=== PATIENT | male | born 1995 | race Hispanic/Latino ===

== ENCOUNTER 2022-10-28 04:33 | Emergency (ER) | payer SELFPAY ==
[2022-10-28] MEDS ORDERED: TDAP (DIPHTH,PERTUSS(ACELL),TET VAC) 0.5 ML VIAL IMVAC ONE (05:03)
[2022-10-28] MEDS ORDERED: LIDOCAINE 1% MPF 30 ML VIAL ONE (06:11)
[2022-10-28] MEDS ORDERED: MUPIROCIN 2% OINT 22GM TUBE TOP ONE (06:33)
--- NOTE | 2022-10-28 06:35 | ER ---
Nurse's Notes [facility] Name: Oleg Tafoya Age: 27 yrs Sex: Male : 1995 Arrival Date: 10/28/2022 Time: 04:36 Bed 5 Private MD: Diagnosis: Laceration without foreign body of right hand, initial encounter Presentation: 10/28 04:55 Chief complaint: Patient states: I punched a glass window and i cut the top of my hand. kd3 I am bleeding a lot. Coronavirus screen: Vaccine status: Patient reports being unvaccinated. Ebola Screen: No symptoms or risks identified at this time. Complicating Factors: laceration to hand. Initial Sepsis Screen: Does the patient meet any 2 criteria? No. Patient's initial sepsis screen is negative. Does the patient have a suspected source of infection? No. Patient's initial sepsis screen is negative. Risk Assessment: Do you want to hurt yourself or someone else? Patient reports no desire to harm self or others. Onset of symptoms was October 28, 2022. 04:55 Method Of Arrival: Ambulatory kd3 04:55 Acuity: RAFFAELE 3 kd3 Triage Assessment: 04:57 General: Appears in no apparent distress. Behavior is calm, cooperative. Pain: kd3 Complains of pain in right hand. Neuro: Level of Consciousness is awake, alert, obeys commands, Oriented to person, place, time, situation. Cardiovascular: Patient's skin is warm and dry. Respiratory: Airway is patent Trachea midline Respiratory effort is even, unlabored, Respiratory pattern is regular, symmetrical. Injury Description: Laceration sustained to dorsum of right hand. Historical: - Allergies: 04:57 No Known Allergies; kd3 - Home Meds: 04:57 None [Active]; kd3 - PMHx: 04:57 None; kd3 - Immunization history:: Adult Immunizations not up to date, Client reports having NOT received the Covid vaccine. - Social history:: Smoking status: unknown. Screenin:58 [facility] ED Fall Risk Assessment (Adult) History of falling in the last 3 months, kd3 including since admission No falls in past 3 months (0 pts) Confusion or Disorientation No (0 pts) Intoxicated or Sedated No (0 pts) Impaired Gait No (0 pts) Mobility Assist Device Used No (0 pt) Altered Elimination No (0 pt) Score/Fall Risk Level 0 - 2 = Low Risk Oriented to surroundings. Abuse screen: Denies threats or abuse. Denies injuries from another. Nutritional screening: No deficits noted. Tuberculosis screening: No symptoms or risk factors identified. Assessment: 04:59 Musculoskeletal: No deficits noted. Swelling present in right hand. kd3 05:36 General: Appears in no apparent distress. Behavior is calm, cooperative. Pain: kd3 Complains of pain in right hand. Neuro: Level of Consciousness is awake, alert, obeys commands, Oriented to person, place, time, situation. Cardiovascular: Patient's skin is warm and dry. Respiratory: Airway is patent Trachea midline Respiratory effort is even, unlabored, Respiratory pattern is regular, symmetrical. 06:38 Injury Description: Laceration is bleeding moderately. kd3 Vital Signs: 04:55 BP 117 / 70; Pulse 95; Resp 19; Temp 98.8(O); Pulse Ox 99% on R/A; Weight 77.11 kg; kd3 Height 5 ft. 5 in. (165.10 cm); 05:06 BP 128 / 81; Pulse 98; Resp 18; Pulse Ox 99% on R/A; kd3 05:37 BP 123 / 67; Pulse 91; Resp 17; Pulse Ox 98% ; kd3 04:55 Body Mass Index 28.29 (77.11 kg, 165.10 cm) kd3 ED Course: 04:36 Patient arrived in ED. wm 04:38 Mercedes Lennon MD is Attending Physician. sd2 04:55 Jennifer Hsu, RN is Primary Nurse. kd3 04:57 Triage completed. kd3 04:57 Arm band placed on left wrist. kd3 04:58 Patient has correct armband on for positive identification. kd3 04:58 No provider procedures requiring assistance completed. kd3 05:33 XRAY Hand RIGHT 3 View In Process Unspecified. EDMS 06:38 Patient did not have IV access during this emergency room visit. kd3 Administered Medications: 05:05 Drug: Tetanus-Diphtheria Toxoid Adult 0.5 ml {Drafting Detailer: OpenQ (AOBiome). Exp: kd3 05/05/2023. Lot #: [id number]. } Route: IM; Site: right deltoid; 06:38 Follow up: Response: No adverse reaction kd3 06:31 Drug: Lidocaine-Epinephrine -1%: (1:100,000) 5 ml Volume: 20 ml; Route: Infiltration; kd3 06:39 Follow up: Response: No adverse reaction kd3 Medication: 04:59 VIS not applicable for this client. kd3 05:11 Vaccine Information Statement (VIS) provided today. Questions and/or concerns kd3 addressed. VIS edition date: May 27, 2021. Outcome: 06:35 Discharge ordered by . sd2 06:38 Discharged to home ambulatory. kd3 06:38 Condition: stable 06:38 Discharge instructions given to patient, friend, Instructed on discharge instructions, follow up and referral plans. Demonstrated understanding of instructions, follow-up care. 06:39 Patient left the ED. kd3 Signatures: Dispatcher [employer] EDMS Ivania Diego Kyli, RN RN kd3 Mercedes Lennon MD MD sd2
--- NOTE | 2022-10-28 06:35 | EDPHYS ---
Physician Documentation [facility] Name: Oleg Tafoya Age: 27 yrs Sex: Male : 1995 Arrival Date: 10/28/2022 Time: 04:36 Bed 5 Private MD: ED Physician Mercedes Lennon HPI: 10/28 04:57 This 27 yrs old Male presents to ER via Ambulatory with complaints of sd2 Laceration To Hand. 04:57 27 yo M presents with CC of R hand laceration after punching a window at home when he sd2 got angry. Reports continued bleeding and he placed a bandage on the area. Noted FROM of the wrist, hand and fingers. Pt reports unknown last tetanus. . Historical: - Allergies: 04:57 No Known Allergies; kd3 - Home Meds: 04:57 None [Active]; kd3 - PMHx: 04:57 None; kd3 - Immunization history:: Adult Immunizations not up to date, Client reports having NOT received the Covid vaccine. - Social history:: Smoking status: unknown. ROS: 04:57 MS/extremity: Positive for laceration, Negative for injury or acute deformity. sd2 04:57 Skin: Positive for abrasion(s), laceration(s). Exam: 04:57 Constitutional: This is a well developed, well nourished patient who is awake, alert, sd2 and in no acute distress. Head/Face: Normocephalic, atraumatic. Eyes: EOMI, normal conjunctiva bilaterally Skin: Warm, dry with normal turgor. Normal color with no rashes, no lesions, and no evidence of cellulitis. Superficial laceration noted to dorsal aspect of R palm with active bleeding. pressure dressing placed. MS/ Extremity: Pulses equal, no cyanosis. Neurovascular intact. Full, normal range of motion. Ambulatory without difficulty. Neuro: Awake and alert, GCS 15, oriented to person, place, time, and situation. Cranial nerves II-XII grossly intact. Motor strength 5/5 in all extremities. Sensory grossly intact. Cerebellar exam normal. Normal gait. Vital Signs: 04:55 BP 117 / 70; Pulse 95; Resp 19; Temp 98.8(O); Pulse Ox 99% on R/A; Weight 77.11 kg; kd3 Height 5 ft. 5 in. (165.10 cm); 05:06 BP 128 / 81; Pulse 98; Resp 18; Pulse Ox 99% on R/A; kd3 05:37 BP 123 / 67; Pulse 91; Resp 17; Pulse Ox 98% ; kd3 04:55 Body Mass Index 28.29 (77.11 kg, 165.10 cm) kd3 Laceration: 06:31 Wound Repair of 6cm ( 2.4in ) subcutaneous laceration to right hand. Irregularly sd2 shaped.. Profuse bleeding noted.. Distal neuro/vascular/tendon intact. Anesthesia: Local anesthetic administered with 4 mls of 1% lidocaine. Wound prep: Simple cleansing, Moderate cleansing by me, Copious irrigation. Skin closed with 4 4-0 Prolene using simple sutures and sterile technique. Dressed with Bacitracin, 4x4's. Patient tolerated well. 06:31 Wound Repair of 3cm ( 1.2in ) subcutaneous laceration to right hand. Linear shaped.. sd2 Minimal bleeding noted.. Distal neuro/vascular/tendon intact. Anesthesia: Local anesthetic administered with 1 mls of 1% lidocaine. Wound prep: Moderate cleansing by me, Copious irrigation. Skin closed with 2 4-0 Prolene using simple sutures and sterile technique. Dressed with Bacitracin, 4x4's. Patient tolerated well. MDM: 04:55 Patient medically screened. sd2 04:57 Differential diagnosis: laceration repair, tetanus, wound infection among others. Data sd2 reviewed: vital signs, nurses notes. 06:31 Data reviewed: radiologic studies. Counseling: I had a detailed discussion with the sd2 patient and/or guardian regarding: the historical points, exam findings, and any diagnostic results supporting the discharge/admit diagnosis, radiology results, to return to the emergency department if symptoms worsen or persist or if there are any questions or concerns that arise at home, Return to ED for suture removal. . ED course: Imaging reviewed with no acute traumatic findings. No signs of tendon injury. Hemostasis achieved with pressure dressing and suture placement. Pt advised of continued wound care and tetanus updated. Verbalizes understanding of discharge plan and strict return precautions as well as need for return for suture removal. . 10/28 04:57 Order name: XRAY Hand RIGHT 3 View sd2 10/28 06:03 Order name: Dressing - Wound; Complete Time: 06:18 sd2 10/28 06:03 Order name: Setup Suture Tray; Complete Time: 06:18 sd2 10/28 06:03 Order name: Prolene, Sutures; Complete Time: 06:18 sd2 Administered Medications: 05:05 Drug: Tetanus-Diphtheria Toxoid Adult 0.5 ml {Grape Picker: MonoLibre (Cloudacc). Exp: kd3 05/05/2023. Lot #: [id number]. } Route: IM; Site: right deltoid; 06:38 Follow up: Response: No adverse reaction kd3 06:31 Drug: Lidocaine-Epinephrine -1%: (1:100,000) 5 ml Volume: 20 ml; Route: Infiltration; kd3 06:39 Follow up: Response: No adverse reaction kd3 Disposition: 06:36 Chart complete. sd2 Disposition Summary: 10/28/22 06:35 Discharge Ordered Location: Home sd2 Problem: new sd2 Symptoms: have improved sd2 Condition: Stable sd2 Diagnosis - Laceration without foreign body of right hand, initial encounter sd2 Followup: sd2 - With: Emergency Department - When: 1 week - Reason: Staple/Suture removal Discharge Instructions: - Discharge Summary Sheet sd2 - Laceration Care, Adult sd2 Forms: - Medication Reconciliation Form sd2 - Thank You Letter sd2 - Antibiotic Education sd2 - Prescription Opioid Use sd2 Signatures: Dispatcher [employer] Jennifer Ruvalcaba RN RN kd3 Mercedes Lennon MD MD sd2
[2022-10-28 06:44] VITALS: TEMP 98.8
[2022-10-28 06:46] VITALS: BP 123/67; O2SAT 98
--- NOTE | 2022-10-28 17:45 | RAD REPORT ---
EXAM DESCRIPTION: RAD - Hand Right 3 View - 10/28/2022 5:31 am CLINICAL HISTORY: The patient is 27 years old and is Male; SMASH INJURY TECHNIQUE: Frontal, lateral and oblique views of the right hand. COMPARISON: No relevant prior studies available. FINDINGS/IMPRESSION: No acute fracture. No dislocation. No subluxation. No acute osseous abnormali ty. 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 The interpreting radiologist is fully responsible for the content of the report
== END 2022-10-28 06:39 | disposition home or self-care (01) ==
LOC: ER 04:33
PROC: 0HQFXZZ Repair Right Hand Skin, External Approach (ICD-10-PCS; principal; 2022-10-28)
DX: S61.411A Laceration without foreign body of right hand, initial encounter (principal); Z23 Encounter for immunization
CPT/HCPCS: 90471; 99283; J2001

== ENCOUNTER 2022-11-06 11:09 | Emergency (ER) | payer SELFPAY ==
--- NOTE | 2022-11-06 11:21 | EDPHYS ---
Physician Documentation [facility] Name: Oleg Tafoya Age: 27 yrs Sex: Male : 1995 Arrival Date: 11/06/2022 Time: 11:10 Bed 12 Private MD: ED Physician Adonis Seals HPI: 11/06 11:20 This 27 yrs old Male presents to ER via Ambulatory with complaints of Suture jh7 Removal. 11:20 The patient has sutures on the right hand. Previous treatment: the care was rendered at [address] 11:20 Previous treatment: The patient was initially treated on October 28, 2022, Treatment [facility] type: The patient's original treatment included sutures, Outpatient prescription(s): The patient was given prescription(s) for nothing, Previous recheck: the patient has not been checked since the original treatment. Sutures/trace progress: The patient has no c/o's. The wound is well-healing with no redness, swelling, discharge, or dehiscence reported. Patient reports that he removed 2 of the sutures on his own.. Historical: - Allergies: 11:28 No Known Allergies; jh5 - PMHx: 11:28 None; [facility] - Immunization history:: Adult Immunizations. - Social history:: Smoking status: Patient denies any tobacco usage or history of. ROS: 11:20 Constitutional: Negative for fever, chills, and weight loss, Eyes: Negative for injury, jh7 pain, redness, and discharge, Cardiovascular: Negative for chest pain, palpitations, and edema, Respiratory: Negative for shortness of breath, cough, wheezing, and pleuritic chest pain, MS/Extremity: Negative for injury and deformity, Neuro: Negative for headache, weakness, numbness, tingling, and seizure. 11:20 Skin: Positive for laceration(s), Negative for erythema, swelling. 11:20 All other systems are negative. Exam: 11:20 Constitutional: This is a well developed, well nourished patient who is awake, alert, jh7 and in no acute distress. Cardiovascular: Regular rate and rhythm with a normal S1 and S2. No gallops, murmurs, or rubs. Normal PMI, no JVD. No pulse deficits. Respiratory: Lungs have equal breath sounds bilaterally, clear to auscultation and percussion. No rales, rhonchi or wheezes noted. No increased work of breathing, no retractions or nasal flaring. MS/ Extremity: Pulses equal, no cyanosis. Neurovascular intact. Full, normal range of motion. Neuro: Awake and alert, GCS 15, oriented to person, place, time, and situation. Motor strength 5/5 in all extremities. Sensory grossly intact. Normal gait. 11:20 Skin: Wound recheck: Suture laceration closure: the wound is healing well, no evidence of dehiscence, no drainage, no swelling, mild erythema. Vital Signs: 11:26 BP 122 / 84; Pulse 74; Resp 16; Temp 98.6; Pulse Ox 100% ; Weight 95.25 kg; Height 5 jh5 ft. 11 in. (180.34 cm); Pain 0/10; 11:26 Body Mass Index 29.29 (95.25 kg, 180.34 cm) jh5 Procedures: 11:20 Suture/Staple removal: Removed 4 sutures, from right hand, site appears well healed, [facility] The larger laceration has very mild erythema on the wound borders. No drainage or swelling present., Patient tolerated well. MDM: 11:12 Patient medically screened. [facility] 11:22 Data reviewed: vital signs, nurses notes. Counseling: I had a detailed discussion with [facility] the patient and/or guardian regarding: the historical points, exam findings, and any diagnostic results supporting the discharge/admit diagnosis, to return to the emergency department if symptoms worsen or persist or if there are any questions or concerns that arise at home. Special discussion: Advised the patient to monitor the larger laceration for increased reddening, swelling, or drainage. Seek ER eval if any of the symptoms occur because antibiotics would be indicated. Also advised to only keep wounds covered when there is a chance of him getting them dirty (at work).. Administered Medications: No medications were administered Disposition: 16:17 Co-signature as Attending Physician, Adonis Seals MD I reviewed the patient's care rt provided by the Advanced Practice Provider and agree with the diagnosis and treatment plan. Disposition Summary: 11/06/22 11:21 Discharge Ordered Location: Home [facility] Problem: new [facility] Symptoms: have improved [facility] Condition: Stable [facility] Diagnosis - Encounter for removal of sutures [facility] Followup: jh7 - With: Private Physician - When: As needed - Reason: Discharge Instructions: - Discharge Summary Sheet jh7 - How to Change Your Wound Dressing jh7 - Suture Removal, Care After jh7 Forms: - Medication Reconciliation Form 7 - Thank You Letter 7 - Work release form kr3 Signatures: Zuleika Reis RN RN jh5 Mady Rojas, INSPECTOR AND HAND PACKAGER INSPECTOR AND HAND PACKAGER jh7 Adonis Seals MD MD rt Corrections: (The following items were deleted from the chart) 11:36 11:20 This 27 yrs old Male presents to ER via Ambulatory with complaints of jh7 Suture Removal. 7 11:38 11:20 Skin: Wound recheck: Suture laceration closure: the wound is healing well, no [facility] evidence of dehiscence, no drainage, no erythema, no swelling, [facility] 11:39 11:20 Suture/Staple removal: Removed 4 sutures, from right hand, site appears well jh7 healed, Patient tolerated well, [facility]
--- NOTE | 2022-11-06 11:52 | ER ---
Nurse's Notes [facility] Name: Oleg Tafoya Age: 27 yrs Sex: Male : 1995 Arrival Date: 11/06/2022 Time: 11:10 Bed 12 Private MD: Diagnosis: Encounter for removal of sutures Presentation: 11/06 11:26 Chief complaint: Patient states: i just need my sutures removed from my hand. [facility] Coronavirus screen: Vaccine status: Patient reports being unvaccinated. Client denies travel out of the [place] in the last 14 days. Ebola Screen: Patient negative for fever greater than or equal to 101.5 degrees Fahrenheit, and additional compatible Ebola Virus Disease symptoms Patient denies exposure to infectious person. Patient denies travel to an Ebola-affected area in the 21 days before illness onset. Initial Sepsis Screen: Does the patient meet any 2 criteria? No. Patient's initial sepsis screen is negative. Does the patient have a suspected source of infection? No. Patient's initial sepsis screen is negative. Risk Assessment: Do you want to hurt yourself or someone else? Patient reports no desire to harm self or others. 11:26 Method Of Arrival: Ambulatory [facility] 11:26 Acuity: RAFFAELE 4 jh5 11:51 Onset of symptoms is unknown. kr3 Triage Assessment: 11:28 General: Appears comfortable, well groomed, well developed, Behavior is calm, jh5 cooperative, appropriate for age. Pain: Denies pain. Historical: - Allergies: 11:28 No Known Allergies; [facility] - PMHx: 11:28 None; [facility] - Immunization history:: Adult Immunizations. - Social history:: Smoking status: Patient denies any tobacco usage or history of. Screenin:48 [facility] ED Fall Risk Assessment (Adult) History of falling in the last 3 months, kr3 including since admission No falls in past 3 months (0 pts) Confusion or Disorientation No (0 pts) Intoxicated or Sedated No (0 pts) Impaired Gait No (0 pts) Mobility Assist Device Used No (0 pt) Altered Elimination No (0 pt) Score/Fall Risk Level 0 - 2 = Low Risk. Abuse screen: Denies threats or abuse. Nutritional screening: No deficits noted. Tuberculosis screening: No symptoms or risk factors identified. Vital Signs: 11:26 BP 122 / 84; Pulse 74; Resp 16; Temp 98.6; Pulse Ox 100% ; Weight 95.25 kg; Height 5 [facility] ft. 11 in. (180.34 cm); Pain 0/10; 11:26 Body Mass Index 29.29 (95.25 kg, 180.34 cm) [facility] ED Course: 11:10 Patient arrived in ED. am2 11:12 [facility] 7 11:12 Adonis Seals MD is Attending Physician. 7 11:28 Triage completed. jh5 11:28 Arm band placed on right wrist. 5 11:48 Sara Khan, RN is Primary Nurse. kr3 11:50 No provider procedures requiring assistance completed. Patient did not have IV access kr3 during this emergency room visit. 11:51 Bed in low position. Call light in reach. Side rails up X 1. kr3 Administered Medications: No medications were administered Medication: 11:51 VIS not applicable for this client. kr3 Outcome: 11:21 Discharge ordered by . [facility] 11:50 Discharged to home ambulatory. kr3 11:50 Condition: stable 11:50 Discharge instructions given to patient, Instructed on discharge instructions, follow up and referral plans. Demonstrated understanding of instructions, follow-up care. 11:51 No charge visit due to suture removal. kr3 11:51 Patient left the ED. kr3 Signatures: Taylor Robledo 2 Zuleika Reis, RN RN [facility] Mady Rojas FNP FNP [facility] Sara Khan, RN RN kr3
[2022-11-06 12:01] VITALS: BP 122/84; TEMP 98.6; O2SAT 100
== END 2022-11-06 11:51 | disposition home or self-care (01) ==
LOC: ER 11:09
DX: Z48.02 Encounter for removal of sutures (principal)